=== PATIENT | male | born 1970 | race Caucasian/White ===

== ENCOUNTER → 2020-07-04 | Outpatient (CLI) | payer OTHER ==
--- NOTE | 2020-07-09 08:49 | TST ---
[facility] [address] [place] [address] TREADMILL STRESS TEST Name: STARR BOSS Room: [facility]#: [id number] Admission: 07/04/20 Attend Phys: Fidelina Beckman Discharge: Date of : 66 Date of Service: 07/04/20 1629 Report #: [id number] THIS REPORT FOR: cc: Jian Prajapati Steve T. DO Liston, Michael J. MD [facility] ~ CC: Jian Prajapati DO DATE OF SERVICE: 07/04/2020 STRESS TEST INDICATION: Syncope with collapse, lightheadedness, nausea, diaphoresis and abnormal EKG. DESCRIPTION OF PROCEDURE: The patient exercised per standard Dharmesh protocol for a total of 8 minutes and 58 seconds. The patient achieved 93% of the maximum predicted heart rate and an energy expenditure equivalent to 10.16 METS. The patient's resting blood pressure was 115/76 mmHg with a resting heart rate of 75 beats per minute. At peak exercise, the blood pressure was 196/60 mmHg with a peak stress heart rate of 154 beats per minute. Recovery blood pressure was 126/82 mmHg with a recovery heart rate of 102 beats per minute. The patient had mild dyspnea and fatigue, but no chest pain or other significant cardiac symptoms with exercise. The baseline 12-lead EKG shows sinus rhythm. There is left ventricular hypertrophy noted with repolarization abnormality. EKGs obtained during and post-exercise show sinus rhythm and sinus tachycardia with continued left ventricular hypertrophy with repolarization abnormality. IMPRESSION: 1. Clinical response, nonischemic. 2. EKG response, nondiagnostic due to underlying left ventricular hypertrophy with repolarization abnormality. CONCLUSION: No exercise evidence of stress-induced ischemia. EKG is nondiagnostic. Consider repeat stress testing with alternate imaging such as myocardial perfusion imaging or echocardiography. <ELECTRONICALLY SIGNED> By: Johnnie Fletcher MD, FACC 07/09/20 0849 1629 1655 Johnnie Fletcher MD, FACC /nt
== END ==
LOC: M.CRD 14:31
DX: R55 Syncope and collapse (principal)